=== PATIENT | male | born 1995 | race African-American/Black ===

== ENCOUNTER 2023-07-16 08:45 | Emergency (ER) | payer MEDICAID ==
[~2023-07-16] VITALS: Ht 182.9 cm; Wt 68.0 kg
[2023-07-16 08:52] VITALS: O2SAT 100
[2023-07-16 10:11] VITALS: BP 110/70; PULSE 61; RESP 20; TEMP 98.4
[2023-07-16] MEDS: IBUPROFEN 600MG TABLET PO ONE (10:11)
[2023-07-16] MEDS: ACETAMINOPHEN 325MG TABLET PO ONE (10:11)
[2023-07-16] MEDS ORDERED: IBUP-1523 MT (13:06)
[2023-07-16] MEDS ORDERED: TOPUD MT (13:06)
== END 2023-07-16 13:47 | disposition home or self-care (01) ==
LOC: ER 09:16
DX: S62.307A Unspecified fracture of fifth metacarpal bone, left hand, initial encounter for closed fracture (principal); F17.200 Nicotine dependence, unspecified, uncomplicated; X58.XXXA Exposure to other specified factors, initial encounter; Y93.89 Activity, other specified; Y92.89 Other specified places as the place of occurrence of the external cause; Y99.8 Other external cause status
CPT/HCPCS: 29125; 73130; 99283